=== PATIENT | female | born 1995 | race Two or more races ===

== ENCOUNTER 2017-09-24 13:33 | Emergency (ER) | payer BC ==
--- NOTE | 2017-09-24 15:30 | UC ---
Respiratory Complaint HPI - HPI Summary HPI Summary: 22 year old female presents with sinus pressure and body aches. - History of Current Complaint Stated Complaint: COUGH,ACHY Time Seen by Provider: 09/24/17 15:30 Hx Obtained From: Patient Onset/Duration: Sudden Onset Severity Initially: Moderate Severity Currently: Moderate - Allergies/Home Medications Allergies/Adverse Reactions: Allergies Allergy/AdvReac Type Severity Reaction Status Date / Time No Known Allergies Allergy Verified 09/24/17 15:35 Home Medications: Home Medications Bcp 1 tab PO DAILY 09/24/17 [History] PMH/Surg Hx/FS Hx/Imm Hx Previously Healthy: Yes Review of Systems Constitutional: Negative Skin: Negative Eyes: Negative ENT: Sore Throat, Nasal Discharge, Sinus Congestion, Sinus Pain/Tenderness Respiratory: Cough Cardiovascular: Negative Gastrointestinal: Negative Genitourinary: Negative Motor: Negative Neurovascular: Negative Musculoskeletal: Negative Neurological: Negative Psychological: Negative All Other Systems Reviewed And Are Negative: Yes Physical Exam Triage Information Reviewed: Yes Appearance: Well-Appearing Vital Signs Reviewed: Yes Eye Exam: Normal ENT: Positive: Pharyngeal erythema, Nasal congestion, Nasal drainage, Sinus tenderness Dental Exam: Normal Neck exam: Normal Neck: Positive: 1 Respiratory Exam: Normal Cardiovascular Exam: Normal Abdominal Exam: Normal Musculoskeletal Exam: Normal Neurological Exam: Normal Psychological Exam: Normal Skin Exam: Normal Respiratory Course/Dx - Differential Dx/Diagnosis Provider Diagnoses: sinusitis. uvulitis. fever. chills Discharge - Discharge Plan Condition: Stable Disposition: HOME Prescriptions: Azithromyxin VIJAY (NF) [Z-Vijay (Zithromax) 250 mg tabs #6] 2 tab PO .TODAY, THEN 1 DAILY #6 tab LoraTADine TAB(NF) [Claritin 10 MG TAB(NF)] 10 mg PO DAILY #30 tab Magic M W2 Liang/Maal/Nyst/Lido* 5 ml SWISH SPIT QID PRN #120 ml PRN Reason: Sore Throat Patient Education Materials: Sinusitis (ED), Allergic Rhinitis (ED) Referrals: Non Staff,Doctor [Primary Care Provider] -
[2017-09-24 16:00] VITALS: BP 116/85
[2017-09-24 19:58] LABS: Mono Internal Control QC Line Present
[2017-09-24 20:04] LABS: Hematocrit 41 % (35-47); Hemoglobin 13.8 g/dl (12.0-16.0); Mean Corpuscular HGB Conc 34 g/dl (31-36); Mean Corpuscular Hemoglobin 30 pg (27-31); Mean Corpuscular Volume 90 fL (80-97); Mean Platelet Volume 8 um3 (7.4-10.4); Red Blood Count 4.54 10^6/ul (4.0-5.4); Red Cell Distribution Width 12 % (10.5-15)
[2017-09-24 20:27] LABS: Albumin 4.2 g/dL (3.2-5.2); BUN/Creatinine Ratio 15.9 (8-20); Calcium 9.5 mg/dL (8.6-10.3); EGFR African American 153.4 (>60); EGFR Non-African American 119.3 (>60); Globulin 2.8 g/dL (2-4); Potassium 4.1 mmol/L (3.5-5.0); Total Bilirubin 0.4 mg/dL (0.2-1.0)
== END 2017-09-24 16:04 | disposition home or self-care (01) ==
LOC: UCCORT 13:33
DX: J32.9 Chronic sinusitis, unspecified (principal); K12.2 Cellulitis and abscess of mouth; R50.9 Fever, unspecified
CPT/HCPCS: 36415; 80053; 85025; 86308; 99202; G0463

== ENCOUNTER 2018-08-13 15:37 | Emergency (ER) | payer BC ==
[2018-08-13 16:08] VITALS: BP 114/89
--- NOTE | 2018-08-13 16:55 | UC ---
Throat Pain/Nasal Jose HPI - HPI Summary HPI Summary: 23 y/o female presents to the urgent care c/o sore throat since this morning. Pain w/ swallowing is 2/10. Pt states Rt tonsil is enlarged and w/ white spots.Pt has not taking anything to alleviate symptoms. Pt denies fever, SOB, wheezing, chest pain, abdominal pain, N/V/D. Pt is UTD w/ all vaccines for her age. - History of Current Complaint Chief Complaint: UCGeneralIllness Stated Complaint: SWOLLEN TONSILS Time Seen by Provider: 08/13/18 16:50 Hx Obtained From: Patient Hx Last Menstrual Period: 07/16/18 on BCP Onset/Duration: Gradual Onset, Lasting Days - 1 day, Still Present, Worse Since - today Severity: Mild Pain Intensity: 3 Pain Scale Used: 0-10 Numeric Cough: None Associated Signs & Symptoms: Positive: Dysphagia. Negative: Sinus Discomfort, Nasal Discharge, Fever - Epiglottits Risk Factors Epiglottis Risk Factors: Negative - Allergies/Home Medications Allergies/Adverse Reactions: Allergies Allergy/AdvReac Type Severity Reaction Status Date / Time No Known Allergies Allergy Verified 08/13/18 16:07 PMH/Surg Hx/FS Hx/Imm Hx Previously Healthy: Yes - Pt denies PMHX - Surgical History Surgical History: Yes Surgery Procedure, Year, and Place: WISDOM TEETH EXTRACTIONS - Family History Known Family History: Positive: Unknown - Pt is adopted - Social History Occupation: Student Lives: Dormitory/Roommates Alcohol Use: Rare Substance Use Type: None Smoking Status (MU): Never Smoked Tobacco - Immunization History Vaccination Up to Date: Yes Review of Systems Constitutional: Negative Skin: Negative Eyes: Negative ENT: Sore Throat - enlarge tonsils Respiratory: Negative Cardiovascular: Negative Gastrointestinal: Negative Genitourinary: Negative Motor: Negative Neurovascular: Negative Musculoskeletal: Negative Neurological: Negative Psychological: Negative Is Patient Immunocompromised?: No All Other Systems Reviewed And Are Negative: Yes Physical Exam - Summary Physical Exam Summary: VITAL SIGNS: Reviewed. GENERAL: Patient is a well developed and nourished female adolescent who is sitting comfortable in the examining table. Patient is not in any acute respiratory distress. HEAD AND FACE: No signs of trauma. No ecchymosis, hematomas or skull depressions. No sinus tenderness. EYES: PERRLA, EOMI x 2, No injected conjunctiva, no nystagmus. No photophobia. EARS: Hearing grossly intact. Ear canals and tympanic membranes are within normal limits. MOUTH: Positive pharynx with erythema, exudates, palatal petechiae. B/L tonsillar enlargement with exudate. Uvula in midline. NECK: Supple, trachea is midline, Positive anterior cervical lymphadenopathy, no JVD, no carotid bruit, no c-spine tenderness, neck with full ROM. No meningeal signs, no Kernig's or brudzinskis signs. CHEST: Symmetric, no tenderness at palpation LUNGS: Clear to auscultation bilaterally. No wheezing or crackles. CVS: Regular rate and rhythm, S1 and S2 present, no murmurs or gallops appreciated. ABDOMEN: Soft, non-tender. No signs of distention. No rebound no guarding, and no masses palpated. Bowel sounds are normal. EXTREMITIES: FROM in all major joints, no edema, no cyanosis or clubbing. NEURO: Alert and oriented x 3. No acute neurological deficits. Speech is normal and follows commands. SKIN: Dry and warm Triage Information Reviewed: Yes Vital Signs: Initial Vital Signs Temp 97.7 F 08/13/18 16:02 Pulse 89 08/13/18 16:02 Resp 16 08/13/18 16:02 BP 114/89 08/13/18 16:02 Pulse Ox 100 08/13/18 16:02 Throat Pain/Nasal Course/Dx - Course Course Of Treatment: 23 y/o female presents to the urgent care c/o sore throat since this morning. Pain w/ swallowing is 2/10. Pt states Rt tonsil is enlarged and w/ white spots.Pt has not taking anything to alleviate symptoms. Pt denies fever, SOB, wheezing, chest pain, abdominal pain, N/V/D. Pt is UTD w/ all vaccines for her age. Hx obtained.Rapid strep ordered, result: negative. Viral pharyngitis.Pt Rx ibuprofen PO to alleviates symptoms of pain and swelling. Advised on hand washing to avoid spreading. Pt advised to rest, eat well and avoid strenuous exercise. If symptoms do not improve or worsen advised to return to the urgent care or f/u with her PCP for further evaluation and treatment. Pt understood and agreed - Differential Dx/Diagnosis Differential Diagnosis/HQI/PQRI: Laryngitis, Mononucleosis, Pharyngitis, Sinusitis, Tonsillitis, URI Provider Diagnoses: 1- Viral pharyngitis Discharge - Sign-Out/Discharge Documenting (check all that apply): Patient Departure - D/c home All imaging exams completed and their final reports reviewed: No Studies - Discharge Plan Condition: Stable Disposition: HOME Prescriptions: Ibuprofen TAB* [Motrin TAB* 600 MG] 600 mg PO Q6H PRN #30 tab PRN Reason: Sore Throat Patient Education Materials: Pharyngitis (ED) Forms: *School Release Referrals: [facility] [place] PHYSICIAN REFERRAL [Outside] - 3 Days Additional Instructions: 1-Please take ibuprofen PO q6-8hrs prn as instructed after meals to alleviate pain and swelling. Increase fluid intake, eat well, rest and avoid strenuous exercise 2-If symptoms do not improve or worsen please return to the urgent care or f/u with your PCP in 3 days for further evaluation and treatment. - Billing Disposition and Condition Condition: STABLE Disposition: Home
== END 2018-08-13 17:14 | disposition home or self-care (01) ==
LOC: UCCORT 15:37
DX: J02.8 Acute pharyngitis due to other specified organisms (principal)
CPT/HCPCS: 87651; 99212; G0463